=== PATIENT | male | born 1955 | race Caucasian/White ===

== ENCOUNTER 2020-09-11 08:35 | Emergency (ER) | payer MEDICARE, BC ==
[2020-09-11 08:55] VITALS: BP 126/86; PULSE 66
--- NOTE | 2020-09-11 09:12 | EDM.PDOC ---
ED HPI GENERAL MEDICAL PROBLEM - General Chief Complaint: Gastrointestinal Problem Stated Complaint: DIVERTICULITIS Time Seen by Provider: 09/11/20 09:00 Source of Information: Reports: Patient, RN Notes Reviewed History Limitations: Reports: No Limitations - History of Present Illness INITIAL COMMENTS - FREE TEXT/NARRATIVE: 65-year-old gentleman presents emergency department today with left lower quadrant pain, he states he has not had any nausea vomiting no shortness of breath or chest pain he last had a bout of diverticulitis about 8 or 9 years ago this feels very similar he usually controls it by consumption fiber bars however he did not bring his fiber bars with on this particular trip. He has had pain for 1 day no fever left lower abd Pain Score (Numeric/FACES): 3 - Related Data Allergies Allergy/AdvReac Type Severity Reaction Status Date / Time No Known Allergies Allergy Verified 09/11/20 08:49 Home Meds: Home Meds Losartan/Hydrochlorothiazide [Losartan-HCTZ 100-25 MG] 1 each PO DAILY 09/11/20 [History] Zolpidem Tartrate [Zolpidem Tartrate ER] 12.5 mg PO DAILY 09/11/20 [History] atorvaSTATin [Lipitor] 20 mg PO BEDTIME 09/11/20 [History] Past Medical History Cardiovascular History: Reports: High Cholesterol, Hypertension Gastrointestinal History: Reports: Diverticulosis Social & Family History - Tobacco Use Tobacco Use Status *Q: Never Tobacco User - Alcohol Use Days Per Week of Alcohol Use: 7 Number of Drinks Per Day: 3 Total Drinks Per Week: 21 - Recreational Drug Use Recreational Drug Use: No ED ROS GENERAL - Review of Systems Review Of Systems: See Below Constitutional: Reports: No Symptoms Respiratory: Reports: No Symptoms Cardiovascular: Reports: No Symptoms GI/Abdominal: Reports: Abdominal Pain. Denies: Constipation, Diarrhea, Nausea, Vomiting ED EXAM, GI/ABD - Physical Exam Exam: See Below Exam Limited By: No Limitations General Appearance: Alert, WD/WN, No Apparent Distress Respiratory/Chest: No Respiratory Distress GI/Abdominal Exam: Normal Bowel Sounds, Soft, No Distention, Tender (Left lower quadrant). No: Rigid, Rebound Course - Vital Signs Last Recorded V/S: Last Vital Signs Temp 97.6 F 09/11/20 08:52 Pulse 66 09/11/20 08:52 Resp 12 09/11/20 08:52 BP 126/86 09/11/20 08:52 Pulse Ox 97 09/11/20 08:52 Departure - Departure Time of Disposition: 09:11 Disposition: Home, Self-Care 01 Condition: Fair Clinical Impression: Abdominal pain - Discharge Information Instructions: Abdominal Pain, Adult Referrals: Jayne Mcmahan MD [Primary Care Provider] - Additional Instructions: Take full course of antibiotics, use Tylenol Motrin as needed for pain control, please followup with your primary care provider in 3-5 days if not better, please call return to the emergency department with worsening of symptoms. Sepsis Event Note (ED) - Evaluation Sepsis Screening Result: No Definite Risk - Focused Exam Vital Signs: Vital Signs Temp Pulse Resp BP Pulse Ox 09/11/20 08:52 97.6 F 66 12 126/86 97 - Assessment/Plan Plan: Assessment Acuity = acute Site and laterality = left lower quadrant abdominal pain Etiology = suspicious for diverticulitis Manifestations = none Location of injury = Home Lab values = none Plan He felt very confident this is diverticulitis I did offer him further evaluation blood work CT scan he declined would prefer to just do treatment he was adamant that he would come back if symptoms became worse, he states that he can get into his regular doctor in [place] without difficulty This note was dictated using [employer] voice recognition software please call with any questions on syntax or grammar.
== END 2020-09-11 09:21 | disposition home or self-care (01) ==
LOC: JP.ED 08:35
DX: R10.32 Left lower quadrant pain (principal); R10.814 Left lower quadrant abdominal tenderness; I10 Essential (primary) hypertension; E78.00 Pure hypercholesterolemia, unspecified; Z79.899 Other long term (current) drug therapy
CPT/HCPCS: 99283